=== PATIENT | female | born 1960 | race Caucasian/White ===

== ENCOUNTER 2024-10-03 13:40 | Inpatient (IN) | payer BC, OTHER ==
[~2024-10-03] VITALS: Ht 175.3 cm; Wt 70.1 kg
--- NOTE | 2024-10-03 14:01 | ED.PDOC ---
HPI (NEURO) HPI Comments HPI: Initial Vital Signs: Temp : 99F BP: 132/77 HR: 110 RR: 16 SpO2: 97% Past Medical History: Hypothyroidism, GERD Past Surgical History: Lt TMJ surgery, , Rt wrist ganglion cyst surgery Social History: Denies smoking, ETOH, or drug use. Medications: No medications. Allergies: NKDA HPI: Poor Historian. 63-year-old female presents to emergency department for six weeks history of intermittent episodes of left upper extremity numbness and tingling with left sided headache and occasional shortness of breath and palpitations. Patient has seen her PCP for this. She had a CT scan of her head without contrast that was unremarkable. Patient continues to have these symptoms. Patient comes to the ED for further evaluation. REVIEW OF SYSTEMS: CONSTITUTIONAL: Denies acute: fever, diaphoresis, chills, generalized weakness. HEAD: Denies acute: photophobia Eyes: Denies acute: Double vision, vision loss, eye pain, eye discharge. EARS: Denies acute: tinnitus, hearing loss, ear discharge, ear pain, THROAT: Denies acute: sore throat, swelling, difficulty swallowing , pain with swallowing, change in voice. NECK: Denies acute: neck pain, neck swelling, stiff neck. HEART: Denies acute : chest pain, LUNGS: Denies acute: wheezing, cough, hemoptysis ABDOMEN: Denies acute: abdominal pain, Nausea, Vomiting, diarrhea, melena , hematemesis, hematochezia SKIN: Denies acute: rash, redness, lesions, itchiness. EXTREMITIES: Denies acute: calf pain, weakness, Denies acute: Low back pain. Neuro: Denies acute: focal neurological deficit, motor or sensory focal neurological deficit, tremors, seizure like activity, confusion, dizziness, change in mental status, loss of bowel or bladder function, cauda equina like symptoms. : Denies acute: dysuria, hematuria, flank pain, increase in urinary frequency. PSYCH: Denies acute: hallucination, suicidal ideation, homicidal ideation. FEMALE: Denies acute: abnormal vaginal bleeding, foul odor, unusual discharge. PHYSICAL EXAM: General: no acute distress, awake and alert. Head: normocephalic, atraumatic. Neck: supple, trachea is midline, no swelling. Throat: Normal phonation. Eyes:, no erythema, no purulent discharge, no proptosis, no icterus. Heart: regular rate, regular rhythm, no significant murmur appreciated. Lungs: no apparent respiratory distress, Able to speak in full sentences. No wheezing, no rhonchi, no crackles. No stridors Clear to auscultation bilaterally. Abdomen: non tender to palpation, non distended, soft, no guarding, no rebound, + bowel sounds. Neuro: Awake, Alert, oriented to name, self, situation, follows commands GCS=15. Speech is normal. Skin: no petechia, no purpura, no cyanosis, non-pale, not jaundice. Lower extremities: --no - Pitting edema no deformity, no focal swelling, no calf TTP. Makes eye contact. moves all four extremities. Face: no apparent facial droop. Ambulating in the ED independently. Stroke: finger to nose cerebellar testing is intact. No pronator drift. Symmetrical clin nurse muscle strength b/l PERRLA, EOM-I CN 2-12 are grossly intact, No nystagmus. No nuchal rigidity, Kernig's sign, Brudzinski's sign, no meningeal signs. ED COURSE: Time Seen by MD: 14:00 Reviewed Notes: Nurses Notes, Allergies Information Source: Patient Mode of Arrival: Ambulatory Was a procedure done? Was a procedure done?: No Differential Diagnosis (SZ) Seizure: N/A Headache: Other (DDX include Sinusitis, migraine, meningitis, hypertension, intracranial mass/bleed, stroke, radiculopathy, vertebrobasillary insufficiency, cephalgia, pseudotumor cerebri, cerebellar ischemia/infarct, carotid stenosis, lacunar infarct, vertebral/carotid artery dissection, hydrocephalus, temporal arteritis, dura venous sinus thrombosis.) X-Ray, Labs, Meds, VS Vital Signs Date Time Temp Pulse Resp B/P (MAP) Pulse Ox O2 Delivery O2 Flow Rate FiO2 10/03/24 15:42 Room Air* 0 21 10/03/24 15:35 82 16 125/61 (82) 98 10/03/24 13:58 96 10/03/24 13:50 99.0 110 16 132/77 (95) 97 Lab Test 10/03/24 15:23 10/03/24 14:24 10/03/24 13:56 10/03/24 00:00 Range/Units Troponin I High Sensitivity < 3 L < 3 L </=34 ng/L White Blood Count 6.2 4.4-10.8 10^3/uL Red Blood Count 4.23 4.0-5.20 10^6/uL Hemoglobin 13.9 12.2-16.2 g/dL Hematocrit 40.8 36.0-46.0 % Mean Corpuscular Volume 96.3 80.0-100.0 fL Mean Corpuscular Hemoglobin 32.9 H 28.0-32.0 pg Mean Corpuscular Hemoglobin Concent 34.1 32.0-36.0 g/dL Red Cell Distribution Width 12.3 11.8-14.3 % Platelet Count 209 140-450 10^3/uL Mean Platelet Volume 8.3 6.9-10.8 fL Neutrophils (%) (Auto) 74.2 37.0-80.0 % Lymphocytes (%) (Auto) 18.4 10.0-50.0 % Monocytes (%) (Auto) 6.2 0.0-12.0 % Eosinophils (%) (Auto) 0.7 0.0-7.0 % Basophils (%) (Auto) 0.5 0.0-2.0 % Neutrophils # (Auto) 4.6 1.6-8.6 10 ^3/uL Lymphocytes # (Auto) 1.1 0.4-5.4 10 ^3/uL Monocytes # (Auto) 0.4 0-1.3 10 ^3/uL Eosinophils # (Auto) 0 0-0.8 10 ^3/uL Basophils # (Auto) 0 0-0.2 10 ^3/uL Nucleated Red Blood Cells 0.0 % Sodium Level 143 136-145 mmol/L Potassium Level 3.6 3.5-5.1 mmol/L Chloride Level 107 98-107 mmol/L Carbon Dioxide Level 28 20-31 mmol/L Anion Gap 8 5-15 Blood Urea Nitrogen 19 9-23 mg/dL Creatinine 0.68 0.550-1.02 mg/dL Glomerular Filtration Rate Calc 98 >90 mL/min BUN/Creatinine Ratio 27.9 H 10.0-20.0 Serum Glucose 103 74-106 mg/dL Calcium Level 9.9 8.7-10.4 mg/dL Magnesium Level 1.7 1.6-2.6 mg/dL Total Bilirubin 0.6 0.2-1.0 mg/dL Aspartate Amino Transferase (AST) 19 13-40 U/L Alanine Aminotransferase (ALT) 24 7-40 U/L Alkaline Phosphatase 76 46-116 U/L B-Type Natriuretic Peptide 39.02 0-100 pg/mL Total Protein 6.4 5.7-8.2 g/dL Albumin 4.6 3.2-4.8 g/dL Thyroid Stimulating Hormone (TSH) 1.34 0.55-4.78 uIU/mL POC Glucose 105 70-106 mg/dl Urine Color Light-yellow Yellow Urine Clarity Clear Clear Urine pH 7.0 5.0-9.0 Urine Specific [place] > 1.035 H 1.001-1.035 Urine Protein Trace H Negative Urine Ketones Negative Negative Urine Blood Negative Negative /uL Urine Nitrite Negative Negative Urine Bilirubin Negative Negative Urine Urobilinogen Normal Negative mg/dL Urine Leukocyte Esterase Negative Negative /uL Urine RBC 1 0 - 4 /hpf Urine Microscopic WBC < 1 0-5 /HPF Urine Squamous Epithelial Cells Few <5 /hpf Urine Bacteria None seen None Seen /hpf Urine Glucose Normal Normal mg/dL Current Medications Medications (Trade) Dose Ordered Sig/Daljit Route Start Time Stop Time Status Last Admin Acetaminophen/ Hydrocodone Bitart ([place] 5/325MG Tab) 1 tab ONCE ONCE PO 10/03/24 18:15 10/03/24 18:16 DC 10/03/24 18:34 [place] [id number] Ph: [phone] DIAGNOSTIC IMAGING Diagnostic Imaging Report : [id number] Signed PATIENT: DORINDA POPE ACCT: [id number] UNIT: [id number] : 1960 LOC: ER ROOM / BED: / AGE / SEX: 63 / F ADM STATUS: REG ER SERVICE [id number] ORDERING PHYSICIAN: SOURAV CHANDRA DO PROCEDURE(s): [place] - ANGIO HEAD/Neck REASON: LINDSEY ORDER NUMBER(s): [id number], ACCESSION NUMBER(s): [id number] Exam: CT ANGIO HEAD/NECK INDICATION: LINDSEY EXAM DATE: 10/03/2024 04:07 PM COMPARISON: None TECHNIQUE: CT head without contrast. CTA head, neckwith intravenous contrast. 3D image postprocessing was performed on a dedicated workstation and images were used for interpretation and reporting. RADIATION DOSE: Tracker: CTDIvol: 29.58 mGy, DLP: 1293.61 mGy*cm Angio: CTDIvol: 29.58 mGy, DLP: 1293.61 mGy*cm FINDINGS: No intracranial hemorrhage. No extra-axial fluid, mass, mass effect or midline shift. Ventricles are midline and normal in size. Garcia-white differentiation maintained. Mastoids well pneumatized. Paranasal sinuses well pneumatized. The right common carotid artery demonstrates no high-grade stenosis. Right internal carotid artery demonstrates no high-grade stenosis. Right middle cerebral artery demonstrates no high-grade stenosis. The left common carotid ar florina demonstrates no high-grade stenosis. The left internal carotid artery demonstrates no high-grade stenosis. Left middle cerebral artery demonstrates no high-grade stenosis. The bilateral anterior cerebral arteries demonstrate no high-grade stenoses. Right vertebral artery demonstrates no high-grade stenosis. Basilar artery demonstrates no high-grade stenosis. Bilateral posterior cerebral arteries demonstrate no high-grade stenoses. Left vertebral artery demonstrates no high-grade stenosis. 8 mm left upper lobe pulmonary nodule. IMPRESSION: 1. No evidence of hemodynamically significant cervical stenosis . 2. No intracranial hemorrhage. 3. 8 mm left upper lobe pulmonary nodule. Recommend follow-up per Fleischner society criteria.. ATED BY: CARLOS ALBERTO BOSTON MD DICTATED DATE/TIME: 10/03/24 1639 SIGNED BY: CARLOS ALBERTO BOSTON MD SIGNED DATE/TIME: 10/03/24 1639 CC: Time of 1ST Reevaluation: 15:00 Reevaluation 1ST: Unchanged Time of 2ND Reevaluation: 18:05 (Patient refuses to go home. She can then go home in this condition. Her symptoms has been persistent for approximately six weeks. She may benefit from a neurology evaluation while in the hospital.) Reevaluation 2ND: Unchanged Patient Education/Counseling: Diagnosis, Treatment Family Education/Counseling: No Family Present Comments Patient presented with the above HPI.----headache--workup was initiated. patient was found with the above mentioned diagnosis. the following medications were ordered: please refer to order lists of meds and tests obtained by myself Dr. Chandra. Patient ED course and VS have been stabilized. Patient has been reassessed in the ED and remained in a stable condition. Pertinent incidental findings were discussed with the patient and/or family. Patient/family voices understanding and is agreeable with plan. Patient has been observed in the ED adequate length of time to insure improvement/stability. Escalation of care considered: Consideration of escalation to observation or admission Patient was ADMITTED to the medicine team for further evaluation and treatment of their presentation. All the reports of any imaging studies that were ordered by myself were reviewed by myself. Departure 1 Departure Time of Disposition: 18:05 Impression: Primary Impression: Headache Additional Impression: Pulmonary nodule Disposition: ADMITTED INPATIENT Admit to: [facility] Condition: Guarded Discharged With: Self Critical Care Note Critical Care Time?: No Heart Score Heart Score: Heart Score Response (Comments) Value History N/A 0 EKG N/A 0 Age N/A 0 Risk Factors N/A 0 Troponin N/A 0 Total 0 I personally scribed for SOURAV CHANDRA DO ([email or web address]) on 10/03/24 at 14:01. Electronically submitted by Elvis Rojas ([email or web address]). I personally scribed for SOURAV CHANDRA DO ([email or web address]) on 10/03/24 at 16:47. Electronically submitted by Elvis Rojas ([email or web address]). I personally scribed for SORUAV CHANDRA DO ([email or web address]) on 10/03/24 at 16:47. Electronically submitted by Elvis Rojas ([email or web address]). SOURAV CHANDRA DO Oct 03, 2024 14:01
--- NOTE | 2024-10-03 15:02 | DVH ---
CHEST RADIOGRAPH Indication: LINDSEY, sob Technique: Single frontal view of the chest was obtained Comparison: None FINDINGS: Lines and Tubes: None Lungs: No focal consolidation. Pleura: No effusion. No pneumothorax. Cardiomediastinal contours: Unremarkable Bones: No acute osseous abnormality. IMPRESSION: 1. No acute cardiopulmonary disease.
[2024-10-03 15:10] LABS: Basophils # (auto) 0 10 ^3/uL (0-0.2); Basophils % (auto) 0.5 % (0.0-2.0); Eosinophils # (auto) 0 10 ^3/uL (0-0.8); Eosinophils % (auto) 0.7 % (0.0-7.0); Hematocrit 40.8 % (36.0-46.0); Hemoglobin 13.9 g/dL (12.2-16.2); Lymphocytes # (auto) 1.1 10 ^3/uL (0.4-5.4); Lymphocytes % (auto) 18.4 % (10.0-50.0); Mean Corpuscular Hemoglobin 32.9 pg (28.0-32.0); Mean Corpuscular Hgb Conc. 34.1 g/dL (32.0-36.0); Mean Corpuscular Volume 96.3 fL (80.0-100.0); Monocytes # (auto) 0.4 10 ^3/uL (0-1.3); Monocytes % (auto) 6.2 % (0.0-12.0); Neutrophils # (auto) 4.6 10 ^3/uL (1.6-8.6); Neutrophils % (auto) 74.2 % (37.0-80.0); Platelet Count (auto) 209 10^3/uL (140-450); Red Blood Cells 4.23 10^6/uL (4.0-5.20); Red Cell Distribution Width 12.3 % (11.8-14.3); White Blood Cell 6.2 10^3/uL (4.4-10.8)
[2024-10-03 15:30] LABS: Alanine Aminotransferase 24 U/L (7-40); Albumin 4.6 g/dL (3.2-4.8); Alkaline Phosphatase 76 U/L (46-116); Anion Gap 8 (5-15); Aspartate Aminotransferase 19 U/L (13-40); BUN/Creatinine Ratio 27.9 (10.0-20.0); Blood Urea Nitrogen 19 mg/dL (9-23); Calcium 9.9 mg/dL (8.7-10.4); Carbon Dioxide 28 mmol/L (20-31); Chloride 107 mmol/L (98-107); Glucose 103 mg/dL (74-106); Magnesium 1.7 mg/dL (1.6-2.6); Potassium 3.6 mmol/L (3.5-5.1); Sodium 143 mmol/L (136-145)
[2024-10-03 15:31] LABS: Bilirubin, Total 0.6 mg/dL (0.2-1.0); Total Protein 6.4 g/dL (5.7-8.2)
[2024-10-03] MEDS: IOHEXOL 350 MG/ML 100ML IJ ONE (16:14)
--- NOTE | 2024-10-03 16:42 | DVH ---
Exam: CT ANGIO HEAD/NECK INDICATION: LINDSEY EXAM DATE: 10/03/2024 04:07 PM COMPARISON: None TECHNIQUE: CT head without contrast. CTA head, neckwith intravenous contrast. 3D image postprocessin g was performed on a dedicated workstation and images were used for interpretation and reporting. RADIATION DOSE: Tracker: CTDIvol: 29.58 mGy, DLP: 1293.61 mGy*cm Angio: CTDIvol: 29.58 mGy, DLP: 1293.61 mGy*cm FINDINGS: No intracranial hemorrhage. No extra-axial fluid, mass, mass effect or midline shift. Ventricles are midline and normal in size. Garcia-white differentiation maintained. Mastoids well pneumatized. Paran sarah sinuses well pneumatized. The right common carotid artery demonstrates no high-grade stenosis. Right internal carotid artery de monstrates no high-grade stenosis. Right middle cerebral artery demonstrates no high-grade stenosis. The left common carotid artery demonstrates no high-grade stenosis. The left internal carotid artery demonstrates no high-grade stenosis. Left middle cerebral artery demonstrates no high-grade stenosis . The bilateral anterior cerebral arteries demonstrate no high-grade stenoses. Right vertebral artery demonstrates no high-grade stenosis. Basilar artery demonstrates no high-grade stenosis. Bilateral posterior cerebral arteries demonstrate no high-grade stenoses. Left vertebral artery demonstrates no high-grade stenosis. 8 mm left upper lobe pulmonary nodule. IMPRESSION: 1. No evidence of hemodynamically significant cervical stenosis . 2. No intracranial hemorrhage. 3. 8 mm left upper lobe pulmonary nodule. Recommend follow-up per Fleischner society criteria..
[2024-10-03 17:30] LABS: Urine Bacteria None Seen /hpf (None Seen)
[2024-10-03 18:04] LABS: Urine Blood Negative /uL (Negative); Urine Clarity Clear (Clear); Urine Color Light-Yellow (Yellow); Urine Protein, UAD TRACE (Negative); Urine Squamous Epithelial Cell FEW /hpf (<5); Urine Urobilinogen Normal (Negative)
[2024-10-03 18:06] LABS: Urine Specific Gravity > 1.035 (1.001-1.035)
[2024-10-03 18:14] LABS: Urine WBC < 1 /HPF (0-5)
[2024-10-03] MEDS: HYDROcodone-ACET 5/325MG TAB PO ONE (18:34)
[2024-10-03] MEDS ORDERED: NITR100C6 PO (19:15)
[2024-10-03] MEDS ORDERED: ESTR0.1C5 (19:15)
[2024-10-03] MEDS ORDERED: OMEP1CAP70 (19:15)
[2024-10-03] MEDS ORDERED: AMOX500C2 (19:15)
[2024-10-03] MEDS ORDERED: IBUP-1455 (19:15)
[2024-10-03] MEDS ORDERED: PHEN-1044 (19:15)
--- NOTE | 2024-10-03 19:28 | DVHHP2 ---
History of Present Illness Reason for Visit: Generalized weakness History of Present Illness 63-year-old female presents to ED with six week history of intermittent episodes of left-sided frontal temporal occipital headache associated with left upper extremity numbness and tingling along with generalized weakness. She reports informing her PCP about this in which a neuro consult has been initiated. She states that she had a CT scan of her head without contrast and that it was normal. The patient is concerned about her symptoms and states I can not live with these symptoms would like to be further evaluated and treated. She denied any recent injury or trauma to her head and to her body. Upon evaluation, there is no deficit noted. The patient informed me that she has not seen a neurologist. The patient will be admitted under hospitalist care to the medical-surgical unit. The patient denies fever, blurred vision, dizziness, chest pain, shortness of breath, nausea, vomiting, abdominal pain, diarrhea, constipation other associated symptoms. The plan has been discussed with the patient in which all questions concerns have been addressed. GI: GERD Endocrine: Hypothyroidism Past Surgical History: Past Surgical History TMJ surgery Right wrist ganglion cyst surgery Family History: None Smoke: No ALCOHOL: none Drugs: None Lives: with Family Domestic Violence: Neg Review of Systems Constitutional: Yes: Weakness Neurological: Numbness (To left arm), Other (Headache) Allergies: Coded Allergies: NO KNOWN ALLERGIES (Unverified , 10/03/24) Medications Current Medications Medications Dose Ordered Sig/Daljit Route Start Time Stop Time Status Last Admin Dose Admin Ketorolac Tromethamine 15 mg Q6HPRN PRN IV 10/03/24 19:15 10/08/24 19:14 UNV Sodium Chloride 1,000 ml @ 75 mls/hr [id number] IV 10/03/24 19:15 UNV Acetaminophen 650 mg Q6HP PRN PO 10/03/24 19:15 UNV Exam Vital Signs Vital Signs Date Time Temp Pulse Resp B/P (MAP) Pulse Ox O2 Delivery O2 Flow Rate FiO2 10/03/24 15:42 Room Air* 0 21 10/03/24 15:35 82 16 125/61 (82) 98 10/03/24 13:50 99.0 General Appearance: Alert, Oriented X3, Cooperative, No acute distress HEENT: Atraumatic, PERRLA, Mucous membr. moist/pink Respiratory: Clear to auscultation, Normal air movement Cardiovascular: Normal S1, Normal S2, No murmurs Abdominal: Normal bowel sounds, Soft, No tenderness, No hepatospenomegaly, No masses Extremities: No clubbing, No cyanosis, No edema, Normal pulses, No tenderness/swelling Skin: No rashes, No breakdown Neuro: Normal gait, Normal speech, Strength at 5/5 X4 ext, Normal tone, Sensat ion intact, Cranial nerves 3-12 NL, Reflexes 2+ Psych/Mental Status: Mental status NL, Mood NL Labs/Xrays Labs Test 10/03/24 15:23 10/03/24 14:24 10/03/24 13:56 10/03/24 00:00 Range/Units Troponin I High Sensitivity < 3 L </=34 ng/L White Blood Count 6.2 4.4-10.8 10^3/uL Red Blood Count 4.23 4.0-5.20 10^6/uL Hemoglobin 13.9 12.2-16.2 g/dL Hematocrit 40.8 36.0-46.0 % Mean Corpuscular Volume 96.3 80.0-100.0 fL Mean Corpuscular Hemoglobin 32.9 H 28.0-32.0 pg Mean Corpuscular Hemoglobin Concent 34.1 32.0-36.0 g/dL Red Cell Distribution Width 12.3 11.8-14.3 % Platelet Count 209 140-450 10^3/uL Mean Platelet Volume 8.3 6.9-10.8 fL Neutrophils (%) (Auto) 74.2 37.0-80.0 % Lymphocytes (%) (Auto) 18.4 10.0-50.0 % Monocytes (%) (Auto) 6.2 0.0-12.0 % Eosinophils (%) (Auto) 0.7 0.0-7.0 % Basophils (%) (Auto) 0.5 0.0-2.0 % Neutrophils # (Auto) 4.6 1.6-8.6 10 ^3/uL Lymphocytes # (Auto) 1.1 0.4-5.4 10 ^3/uL Monocytes # (Auto) 0.4 0-1.3 10 ^3/uL Eosinophils # (Auto) 0 0-0.8 10 ^3/uL Basophils # (Auto) 0 0-0.2 10 ^3/uL Nucleated Red Blood Cells 0.0 % Sodium Level 143 136-145 mmol/L Potassium Level 3.6 3.5-5.1 mmol/L Chloride Level 107 98-107 mmol/L Carbon Dioxide Level 28 20-31 mmol/L Anion Gap 8 5-15 Blood Urea Nitrogen 19 9-23 mg/dL Creatinine 0.68 0.550-1.02 mg/dL Glomerular Filtration Rate Calc 98 >90 mL/min BUN/Creatinine Ratio 27.9 H 10.0-20.0 Serum Glucose 103 74-106 mg/dL Calcium Level 9.9 8.7-10.4 mg/dL Magnesium Level 1.7 1.6-2.6 mg/dL Total Bilirubin 0.6 0.2-1.0 mg/dL Aspartate Amino Transferase (AST) 19 13-40 U/L Alanine Aminotransferase (ALT) 24 7-40 U/L Alkaline Phosphatase 76 46-116 U/L B-Type Natriuretic Peptide 39.02 0-100 pg/mL Total Protein 6.4 5.7-8.2 g/dL Albumin 4.6 3.2-4.8 g/dL Thyroid Stimulating Hormone (TSH) 1.34 0.55-4.78 uIU/mL POC Glucose 105 70-106 mg/dl Urine Color Light-yellow Yellow Urine Clarity Clear Clear Urine pH 7.0 5.0-9.0 Urine Specific [place] > 1.035 H 1.001-1.035 Urine Protein Trace H Negative Urine Ketones Negative Negative Urine Blood Negative Negative /uL Urine Nitrite Negative Negative Urine Bilirubin Negative Negative Urine Urobilinogen Normal Negative mg/dL Urine Leukocyte Esterase Negative Negative /uL Urine RBC 1 0 - 4 /hpf Urine Microscopic WBC < 1 0-5 /HPF Urine Squamous Epithelial Cells Few <5 /hpf Urine Bacteria None seen None Seen /hpf Urine Glucose Normal Normal mg/dL ORDERING PHYSICIAN: SOURAV CHANDRA DO PROCEDURE(s): [place] - ANGIO HEAD/Neck REASON: ORDER NUMBER(s): [id number], ACCESSION NUMBER(s): [id number] Exam: CT ANGIO HEAD/NECK INDICATION: LINDSEY EXAM DATE: 10/03/2024 04:07 PM COMPARISON: None TECHNIQUE: CT head without contrast. CTA head, neckwith intravenous contrast. 3D image postprocessing was performed on a dedicated workstation and images were used for interpretation and reporting. RADIATION DOSE: Tracker: CTDIvol: 29.58 mGy, DLP: 1293.61 mGy*cm Angio: CTDIvol: 29.58 mGy, DLP: 1293.61 mGy*cm FINDINGS: No intracranial hemorrhage. No extra-axial fluid, mass, mass effect or midline shift. Ventricles are midline and normal in size. Garcia-white differentiation maintained. Mastoids well pneumatized. Paranasal sinuses well pneumatized. The right common carotid artery demonstrates no high-grade stenosis. Right i nternal carotid artery demonstrates no high-grade stenosis. Right middle cerebral artery demonstrates no high-grade stenosis. The left common carotid artery demonstrates no high-grade stenosis. The left internal carotid artery demonstrates no high-grade stenosis. Left middle cerebral artery demonstrates no high-grade stenosis. The bilateral anterior cerebral arteries demonstrate no high-grade stenoses. Right vertebral artery demonstrates no high-grade stenosis. Basilar artery demonstrates no high-grade stenosis. Bilateral posterior cerebral arteries demonstrate no high-grade stenoses. Left vertebral artery demonstrates no high-grade stenosis. 8 mm left upper lobe pulmonary nodule. IMPRESSION: 1. No evidence of hemodynamically significant cervical stenosis . 2. No intracranial hemorrhage. 3. 8 mm left upper lobe pulmonary nodule. Recommend follow-up per Fleischner society criteria.. ATED BY: CARLOS ALBERTO BOSTON MD DICTATED DATE/TIME: 10/03/241638 SIGNED BY: CARLOS ALBERTO BOSTON MD SIGNED DATE/TIME: 10/03/241638 CC: ORDERING PHYSICIAN: SOURAV CHANDRA DO PROCEDURE(s): CXRP - CHEST PORTABLE REASON: LINDSEY, sob ORDER NUMBER(s): [id number], ACCESSION NUMBER(s): [id number] CHEST RADIOGRAPH Indication: LINDSEY, sob Technique: Single frontal view of the chest was obtained Comparison: None FINDINGS: Lines and Tubes: None Lungs: No focal consolidation. Pleura: No effusion. No pneumothorax. Cardiomediastinal contours: Unremarkable Bones: No acute osseous abnormality. IMPRESSION: 1. No acute cardiopulmonary disease. ATED BY: BENNY REYES Jr., DO DICTATED DATE/TIME: 10/03/241458 SIGNED BY: BENNY REYES Jr., SIGNED DATE/TIME: 10/03/241458 CC: Assessment/Plan Assessment/Plan Generalized weakness--patient with chief complaint of left side headache associated with left upper extremity numbness and tingling and weakness intermittently past six weeks Patient went to PCP and informed of this in which Neuro consult pending authorization She has CT scan of her head without contrast that was unremarkable No recent injury or trauma to her head or body Admit to medical-surgical unit Reviewed CBC which is normal Reviewed BNP which is normal Reviewed BMP which is normal Cardiac enzyme negative x2 Urinalysis is negative Reviewed CT head/neck--8 mm left upper lobe nodule noted Reviewed chest x-ray which is normal Orthostatic BP Q shift Neuro check Q shift IV Toradol now and p.r.n. Consult neurologist for evaluation and recommendation 8 mm left upper lobe nodule No history of cancer No history of smoking We will consider to consult paper products machine operator for evaluation Hypothyroidism TSH 1.34 GERD Protonix p.o. Reconcile home medication DVT prophylaxis PUD prophylaxis Labs in a.m. Discussed plan of care with the patient in which all questions concerns have been addressed Plan discussed with: Patient My Orders Orders - LADY CORDERO MANAGER UTILIZATION Procedure Category Date Status Time Orthostatic Vital ORDERS 10/03/24 Transmitted Signs 19:12 Orthostatic Vital ORDERS 10/04/24 Transmitted Signs 19:12 Ketorolac Injection PHA 10/03/24 Logged (Toradol Injection) 19:15 Ketorolac Injection PHA 10/03/24 Logged (Toradol Injection) 19:15 * Neurology Consult CONS 10/03/24 Transmitted 19:12 Admit ADMIT 10/03/24 Transmitted 19:12 2 Gm Sodium Diet DIET 10/04/24 Transmitted Breakfast Sodium Chloride 0.9% PHA 10/03/24 Logged 19:15 Complete Blood Count LAB 10/04/24 Verified 04:00 Comprehensive LAB 10/04/24 Verified Metabolic Panel 04:00 Condition: Fair CYRIL 10/03/24 In Process 19:12 Acetaminophen Tablet PHA 10/03/24 Logged (Tylenol Tablet) 19:15 BRP CYRIL 10/03/24 In Process 19:12 Date of Service: Oct 03, 2024 Billing Provider: LADY CORDERO Common Visit Codes: [id number] INP/OBS CARE (HIGH) LADY CORDERO Oct 03, 2024 19:28
[2024-10-03] MEDS: KETOROLAC TROMETH 30 MG/ML 1ML VIAL IV ONE (21:00)
[2024-10-03 22:12] VITALS: BP 140/47; PULSE 69; PULSE 75; RESP 17; RESP 18; TEMP 98.2; O2SAT 97; O2SAT 98
[2024-10-03] MEDS ORDERED: LEVO-848 PO (22:46)
[2024-10-03] MEDS: SODIUM CHLORIDE 0.9% 1,000 ML IV SCH (23:06)
[2024-10-03] MEDS: KETOROLAC TROMETH 30 MG/ML 1ML VIAL IV PRN (23:21)
[2024-10-04] VITALS (8 sets, daily range): BP systolic 103–120; BP diastolic 49–62; PULSE 55–86; RESP 17–18; TEMP 97.4–99; O2SAT 93–97
[2024-10-04 07:20] LABS: Basophils # (auto) 0 10 ^3/uL (0-0.2); Basophils % (auto) 0.4 % (0.0-2.0); Eosinophils # (auto) 0.1 10 ^3/uL (0-0.8); Eosinophils % (auto) 1.3 % (0.0-7.0); Hematocrit 37.4 % (36.0-46.0); Hemoglobin 12.8 g/dL (12.2-16.2); Lymphocytes # (auto) 1.3 10 ^3/uL (0.4-5.4); Lymphocytes % (auto) 22.5 % (10.0-50.0); Mean Corpuscular Hemoglobin 33.2 pg (28.0-32.0); Mean Corpuscular Hgb Conc. 34.2 g/dL (32.0-36.0); Mean Corpuscular Volume 97.1 fL (80.0-100.0); Monocytes # (auto) 0.5 10 ^3/uL (0-1.3); Monocytes % (auto) 8.1 % (0.0-12.0); Neutrophils % (auto) 67.7 % (37.0-80.0); Platelet Count (auto) 180 10^3/uL (140-450); Red Blood Cells 3.85 10^6/uL (4.0-5.20); Red Cell Distribution Width 12.3 % (11.8-14.3)
[2024-10-04 07:35] LABS: Alanine Aminotransferase 20 U/L (7-40); Alkaline Phosphatase 60 U/L (46-116); Anion Gap 8 (5-15); Aspartate Aminotransferase 15 U/L (13-40); BUN/Creatinine Ratio 29.3 (10.0-20.0); Blood Urea Nitrogen 17 mg/dL (9-23); Calcium 9.4 mg/dL (8.7-10.4); Carbon Dioxide 29 mmol/L (20-31); Glucose 94 mg/dL (74-106)
[2024-10-04 07:36] LABS: Bilirubin, Total 0.6 mg/dL (0.2-1.0)
[2024-10-04 07:57] LABS: Chloride 109 mmol/L (98-107); Potassium 3.3 mmol/L (3.5-5.1); Sodium 146 mmol/L (136-145); Total Protein 5.6 g/dL (5.7-8.2)
[2024-10-04] MEDS: ACETAMINOPHEN 325 MG TAB PO PRN (11:23)
--- NOTE | 2024-10-04 11:49 | DVHPN2 ---
Reviewed: Care Plan, H&P, Labs, Medications, Previous Orders, Radiology Changes from previous H/P or p: No Changes Objective Vitals Vital Signs Date Time Temp Pulse Resp B/P (MAP) Pulse Ox O2 Delivery O2 Flow Rate FiO2 10/04/24 08:47 97.4 75 18 114/56 (75) 97 97.4 10/04/24 08:00 Room Air* 0 21 Intake/Output Intake and Output 10/04/24 07:00 Intake Total 240 ml Balance 240 ml Intake Oral 240 ml # Voids 1 Medications Current Medications Medications Dose Ordered Sig/Daljit Route Start Time Stop Time Status Last Admin Dose Admin Ketorolac Tromethamine 15 mg Q6HPRN PRN IV 10/03/24 19:15 10/08/24 19:14 10/04/24 06:31 15 MG Sodium Chloride 1,000 ml @ 75 mls/hr [id number] IV 10/03/24 19:15 10/04/24 11:23 75 MLS/HR Acetaminophen 650 mg Q6HP PRN PO 10/03/24 19:15 10/04/24 11:23 650 MG Laboratory Results Laboratory Tests 10/04/24 06:18 Chemistry Test 10/03/24 14:24 10/04/24 06:18 Albumin 4.6 g/dL (3.2-4.8) 4.0 g/dL (3.2-4.8) Calcium Level 9.9 mg/dL (8.7-10.4) 9.4 mg/dL (8.7-10.4) Magnesium Level 1.7 mg/dL (1.6-2.6) Total Protein 6.4 g/dL (5.7-8.2) 5.6 g/dL (5.7-8.2) L Cardiac Markers Test 10/03/24 14:24 B-Type Natriuretic Peptide 39.02 pg/mL (0-100) LFT Test 10/03/24 14:24 10/04/24 06:18 Alanine Aminotransferase (ALT) 24 U/L (7-40) 20 U/L (7-40) Alkaline Phosphatase 76 U/L (46-116) 60 U/L (46-116) Aspartate Amino Transferase (AST) 19 U/L (13-40) 15 U/L (13-40) Total Bilirubin 0.6 mg/dL (0.2-1.0) 0.6 mg/dL (0.2-1.0) HgA1c, TSH Test 10/03/24 14:24 Thyroid Stimulating Hormone (TSH) 1.34 uIU/mL (0.55-4.78) Urinalysis Test 10/03/24 00:00 Urine Color Light-yellow (Yellow) Urine Clarity Clear (Clear) Urine pH 7.0 (5.0-9.0) Urine Specific [place] > 1.035 (1.001-1.035) Urine Protein Trace (Negative) H Urine Ketones Negative (Negative) Urine Blood Negative /uL (Negative) Urine Nitrite Negative (Negative) Urine Bilirubin Negative (Negative) Urine Urobilinogen Normal mg/dL (Negative) Urine Leukocyte Esterase Negative /uL (Negative) Urine RBC 1 /hpf (0 - 4) Urine Microscopic WBC < 1 /HPF (0-5) Urine Squamous Epithelial Cells Few /hpf (<5) Urine Bacteria None seen /hpf (None Seen) Urine Glucose Normal mg/dL (Normal) Labs and/or images reviewed: Labs reviewed by me, Image(s) reviewed by me Assessment/Plan Assessment/Plan Subacute left-sided headache with left-sided weakness rule out TIA CVA: CT head negative consult for Neurology Dr. Tidwell, Toradol for the pain 8 mm left upper lobe nodule: Consult for Dr. Kim Hypothyroidism GERD ESR rule out temporal arteritis pending All labs are normal CT C-spine ordered Plan discussed with: Patient Date of Service: Oct 04, 2024 Billing Provider: ROBERT DAWSON MD Common Visit Codes: [id number] INP/OBS CARE(HIGH) ROBERT DAWSON MD Oct 04, 2024 11:49
[2024-10-04 12:52] LABS: Erythrocyte Sedimentation Rate 5 mm/hr (0-20)
[2024-10-04] MEDS: HYDROmorphone HCL 2 MG/ML VL/or syr IV PRN (13:46)
--- NOTE | 2024-10-04 17:01 | DVH ---
EXAM: CT CERVICAL WITHOUT CONTRAST INDICATION: Left-sided Neck pain with left-sided weakness EXAM DATE: 10/04/2024 04:05 PM COMPARISON: None TECHNIQUE: Multiple axial CT images of the cervical spine were obtained using bone algorithm. Axial a nd coronal reformatting was done. Bone and soft tissue windows were reviewed. Radiation Dose Information: CT Dose: CTDI volume is 15.26 mGy. Dose-length product is 431.72 mGy*cm FINDINGS: The cervical alignment is intact. No acute cervical spine fracture is identified. The vertebral body heights are intact. No suspicious osseous lesions are identified. No significant degenerative changes are identified. There is no prevertebral soft tissue swelling. IMPRESSION: 1. No evidence of acute cervical spine fracture or traumatic malalignment. 2. No findings of central spinal stenosis or neural foraminal stenosis. All CT scans at this medical facility are performed using dose modulation techniques as appropriate t o a performed exam including the following: Automated exposure control was utilized; adjustment of th e MA and/or KV according to patient size; and use of iterative reconstruction technique.
--- NOTE | 2024-10-04 21:15 | ECG ---
[facility] Test Date: 2024-10-03 Test Time: 13:58:22 Pat Name: DORINDA POPE Department: ER Room: 0274 Gender: F Medical Language Specialist: SEYMOUR : 1960 Requested By: SOURAV CHANDRA Order Number: [id number] Reading MD: Measurements Intervals [place] Rate: 96 P: 63 ID: [id number] QRS: -28 QRSD: 84 T: 35 QT: 339 QTc: 429 Interpretive Statements Sinus rhythm Borderline left axis deviation Low voltage, precordial leads Please click the below link to view image of tracing.
[2024-10-04] MEDS: ONDANSETRON HCL 4 MG/2 ML VIAL IV PRN (22:30)
[2024-10-04] MEDS: MORPHINE SULFATE INJ 2 MG/ml SYRG IV PRN (22:39)
--- NOTE | 2024-10-04 23:07 | DVHINCON2 ---
Date of service: Oct 04, 2024 Referring Physician Jacqueline Jimenez NP Reason for Consultation 8 MM KAREEM nodule History of Present Illness A 63-year-old woman with PMHx of GERD and hypothyroidism who presented to ED on 10/03/24 with 6-week history of intermittent episodes of left-sided frontal temp oral occipital headache associated with left upper extremity numbness and tingling along with generalized weakness. Reports PCP has initiated a neuro consult for these sx. Past CT scan of head without contrast was normal. The patient is concerned about her symptoms and states I cannot live with these symptoms would like to be further evaluated and treated. She denied any recent injury or trauma to her head and to her body. No deficits noted on evaluation. Patient has not seen a neurologist. Denied fever, blurred vision, dizziness, chest pain, shortness of breath, N/V/D or other complaints. Patient was admitted for further care, and pulmonary consultation is requested for evaluation and management d/t pulmonary nodule found on imaging. Review of Systems: 14-point review of systems negative unless otherwise noted above. Past Medical History: GERD, hypothyroidism, TMJ. Past Surgical History: , TMJ, right wrist ganglion cyst. Medications: Reviewed. Allergies: No known drug allergies. Family History: Cardiovascular disease. Social History: Nonsmoker. No alcohol or illicit drug use. Family History: Cardiovascular disease G8 MOTHER, Allergies: Coded Allergies: NO KNOWN ALLERGIES (Unverified , 10/03/24) Home Meds Reported Medications Levothyroxine Sodium (SYNTHROID TABLET) 50 Mcg Tb, 1 TAB PO DAILY, #30 TAB 5 Refills 10/03/24 Estradiol Vaginal (Estradiol) 0.1 Mg/Gm Cre 10/03/24 Omeprazole (Omeprazole Dr) 20 Mg Cap, 1 DAILY 10/03/24 Ibuprofen Micronized (Ibuprofen) 800 Mg Tab, 1 10/03/24 Amoxicillin Trihydrate (Amoxicillin) 500 Mg Cap, 1 10/03/24 Current Medications Current Medications Medications (Trade) Dose Ordered Sig/Daljit Route PRN Reason Start Time Stop Time Status Last Admin Hydromorphone HCl (Dilaudid Injection) 2 mg Q6HPRN PRN IV SEVERE PAIN (7-10 PAIN SCALE) 10/04/24 12:00 10/04/24 22:09 DC 10/04/24 13:46 Pantoprazole Sodium (Protonix Tablet) 40 mg DAILY PO 10/05/24 10:00 Levothyroxine Sodium (Synthroid Tablet) 50 mcg QAM@0600 PO 10/05/24 06:00 Morphine Sulfate 2 mg Q6HPRN PRN IV SEVERE PAIN (7-10 PAIN SCALE) 10/04/24 22:15 10/04/24 22:39 Ondansetron HCl (Zofran) 4 mg Q6HPRN PRN IV NAUSEA / VOMITING 10/04/24 22:15 10/04/24 22:30 Vital Signs Vital Signs Date Time Temp Pulse Resp B/P (MAP) Pulse Ox O2 Delivery O2 Flow Rate FiO2 10/04/24 22:39 59 18 108/59 10/04/24 21:00 99.0 93 99.0 10/04/24 08:00 Room Air* 0 21 Physical Exam Gen.: Patient lying in bed in no apparent distress. Breathing on room air. Head: Normocephalic, atraumatic. Eyes: EOMI/PERRLA. Ears: Normal hearing. Normal anatomy. Neck/trachea: Trachea midline, supple. Nose: Normal external anatomy. Mouth: Moist mucous membranes. Chest: Decreased air entry bilaterally. No wheezing or rhonchi. Cardiovascular: Positive S1, positive S2. Regular rate and rhythm. Abdomen: Positive bowel sounds in all 4 quadrants. Soft, non-tender, non- distended. : Deferred. Rectal: Deferred. Skin: Warm, dry. Intact. Extremities: 2+ radial pulses bilaterally. No lower extremity edema. Neuro: Awake, alert, oriented x3. No gross motor or sensory deficits. Cranial nerves II through XII intact. Gait not assessed. Labs/Diagnostic Data Labs Test 10/04/24 11:38 10/04/24 06:18 10/03/24 15:23 10/03/24 14:24 Range/Units Erythrocyte Sedimentation Rate 5 0-20 mm/hr White Blood Count 6.0 4.4-10.8 10^3/uL Red Blood Count 3.85 L 4.0-5.20 10^6/uL Hemoglobin 12.8 12.2-16.2 g/dL Hematocrit 37.4 36.0-46.0 % Mean Corpuscular Volume 97.1 80.0-100.0 fL Mean Corpuscular Hemoglobin 33.2 H 28.0-32.0 pg Mean Corpuscular Hemoglobin Concent 34.2 32.0-36.0 g/dL Red Cell Distribution Width 12.3 11.8-14.3 % Platelet Count 180 140-450 10^3/uL Mean Platelet Volume 8.2 6.9-10.8 fL Neutrophils (%) (Auto) 67.7 37.0-80.0 % Lymphocytes (%) (Auto) 22.5 10.0-50.0 % Monocytes (%) (Auto) 8.1 0.0-12.0 % Eosinophils (%) (Auto) 1.3 0.0-7.0 % Basophils (%) (Auto) 0.4 0.0-2.0 % Neutrophils # (Auto) 4.0 1.6-8.6 10 ^3/uL Lymphocytes # (Auto) 1.3 0.4-5.4 10 ^3/uL Monocytes # (Auto) 0.5 0-1.3 10 ^3/uL Eosinophils # (Auto) 0.1 0-0.8 10 ^3/uL Basophils # (Auto) 0 0-0.2 10 ^3/uL Nucleated Red Blood Cells 0.0 % Sodium Level 146 H 136-145 mmol/L Potassium Level 3.3 L 3.5-5.1 mmol/L Chloride Level 109 H 98-107 mmol/L Carbon Dioxide Level 29 20-31 mmol/L Anion Gap 8 5-15 Blood Urea Nitrogen 17 9-23 mg/dL Creatinine 0.58 0.550-1.02 mg/dL Glomerular Filtration Rate Calc 102 >90 mL/min BUN/Creatinine Ratio 29.3 H 10.0-20.0 Serum Glucose 94 74-106 mg/dL Calcium Level 9.4 8.7-10.4 mg/dL Total Bilirubin 0.6 0.2-1.0 mg/dL Aspartate Amino Transferase (AST) 15 13-40 U/L Alanine Aminotransferase (ALT) 20 7-40 U/L Alkaline Phosphatase 60 46-116 U/L Total Protein 5.6 L 5.7-8.2 g/dL Albumin 4.0 3.2-4.8 g/dL Troponin I High Sensitivity < 3 L </=34 ng/L Magnesium Level 1.7 1.6-2.6 mg/dL B-Type Natriuretic Peptide 39.02 0-100 pg/mL Thyroid Stimulating Hormone (TSH) 1.34 0.55-4.78 uIU/mL Test 10/03/24 13:56 10/03/24 00:00 Range/Units POC Glucose 105 70-106 mg/dl Urine Color Light-yellow Yellow Urine Clarity Clear Clear Urine pH 7.0 5.0-9.0 Urine Specific [place] > 1.035 H 1.001-1.035 Urine Protein Trace H Negative Urine Ketones Negative Negative Urine Blood Negative Negative /uL Urine Nitrite Negative Negative Urine Bilirubin Negative Negative Urine Urobilinogen Normal Negative mg/dL Urine Leukocyte Esterase Negative Negative /uL Urine RBC 1 0 - 4 /hpf Urine Microscopic WBC < 1 0-5 /HPF Urine Squamous Epithelial Cells Few <5 /hpf Urine Bacteria None seen None Seen /hpf Urine Glucose Normal Normal mg/dL Assessment Impression: Pulmonary nodule Hypokalemia Generalized weakness GERD Plan: CT showing 8 mm KAREEM pulmonary nodule. No history of smoking. Recommend repeat CT chest w/o contrast in 6-12 months for lung nodule surveillance given pt's low risk due to no history of smoking. CXR shows no acute opacities. Follow up Neurology recs On room air Supplemental oxygen PRN Monitor renal function. Monitor electrolytes. Supplement as necessary. Monitor potassium Monitor ins and outs. GI prophylaxis with Protonix due to h/o GERD. DVT prophylaxis. Prognosis: Guarded given patient's multiple co-morbidities. Rest of plan per hospitalist and other consultants. Thank you Dr Lynne Andujar for allowing me to participate in this patient's care. Further recommendations will depend on the patient's clinical course. Please do not hesitate to contact me if you have any questions or concerns. This medical document was created using an electronic medical record system with [employer] dictation system. Although these documentations are being carefully reviewed, there may still be some phonetic and typographical changes. The errors are purely typographical, due to imperfection on the software program, and do not reflect any compromise in the patient's medical care. Plan discussed with: Patient, Other (KAROLINA Dietz/HIMANSHU Jimenez/) KARI ONOFRE MD Oct 04, 2024 23:07
[2024-10-05] VITALS (7 sets, daily range): BP systolic 102–116; BP diastolic 49–60; PULSE 60–79; RESP 16–18; TEMP 98–99.2; O2SAT 94–98
[2024-10-05] MEDS: LEVOTHYROXINE SODIUM 50 MCG TAB PO SCH (05:44)
[2024-10-05] MEDS: PANTOPRAZOLE 40 MG TAB PO SCH (09:35)
--- NOTE | 2024-10-05 10:58 | DVH ---
Procedure: CT CHEST WITHOUT CONTRAST Reason for study/Clinical History: Eval lungs for pulmonary nodules Comparison Study: None available at time of dictation. Exam Date: 10/05/2024 08:57 AM TECHNIQUE: Multidetector CT of the chest was performed from the lung apices to the upper abdomen with out the use of intravenous contract. Axial, coronal and sagittal multiplanar reformats were performed . Radiation Dose Information: CT Dose: CTDI volume is 4.61 mGy. Dose-length product is 160.49 mGy*cm The dose indicators for CT are the volume Computed Tomography (CT) Dose Index (CTDIvol) and the Dose Length Product (DLP), and are measured in units of mGy and mGy-cm, respectively. These indicators are not patient dose, but values generated from the CT scanner acquisition factors. The report includes radiation exposure data for exposures received during this examination. FINDINGS: Lower neck: Normal thyroid. Lungs: No suspicious pulmonary nodule. Biapical scarring. Dependent atelectasis. Heart/Vascular Structures: Borderline cardiomegaly. Vascular calcifications of the aorta. Lymph Nodes: No adenopathy Pleura: No pleural effusion or significant pneumothorax. Musculoskeletal: No acute osseous abnormality. Soft tissues: Normal. Upper abdomen: Limited portions of the upper abdomen are unremarkable. IMPRESSION: No acute intrathoracic abnormality. Radiation optimization: All CT scans at this facility use at least one of these dose optimization jaleesa hniques: automated exposure control mA and/or kV adjustment per patient size (includes targeted exam s where dose is matched to clinical indication) or iterative reconstruction.
--- NOTE | 2024-10-05 12:40 | DVHPN2 ---
Reviewed: Care Plan, H&P, Labs, Medications, Previous Orders, Radiology Changes from previous H/P or p: No Changes Objective Vitals Vital Signs Date Time Temp Pulse Resp B/P (MAP) Pulse Ox O2 Delivery O2 Flow Rate FiO2 10/05/24 10:32 60 16 102/50 10/05/24 08:49 98.0 98 98.0 10/05/24 08:00 Room Air* 0 21 Intake/Output Intake and Output 10/05/24 07:00 Intake Total 1768 ml Output Total 0 ml Balance 1768 ml Intake Oral 1168 ml IV Total 600 ml Output Stool Total 0 ml # Voids 8 Medications Current Medications Medications Dose Ordered Sig/Daljit Route Start Time Stop Time Status Last Admin Dose Admin Ketorolac Tromethamine 15 mg Q6HPRN PRN IV 10/03/24 19:15 10/08/24 19:14 10/04/24 06:31 15 MG Sodium Chloride 1,000 ml @ 75 mls/hr [id number] IV 10/03/24 19:15 10/04/24 02:30 75 MLS/HR Acetaminophen 650 mg Q6HP PRN PO 10/03/24 19:15 10/04/24 11:23 650 MG Pantoprazole Sodium 40 mg DAILY PO 10/05/24 10:00 10/05/24 09:35 40 MG Levothyroxine Sodium 50 mcg QAM@0600 PO 10/05/24 06:00 10/05/24 05:44 50 MCG Morphine Sulfate 2 mg Q6HPRN PRN IV 10/04/24 22:15 10/05/24 10:02 2 MG Ondansetron HCl 4 mg Q6HPRN PRN IV 10/04/24 22:15 10/04/24 22:30 4 MG Laboratory Results Laboratory Tests 10/04/24 06:18 Urinalysis Test 10/03/24 00:00 Urine Color Light-yellow (Yellow) Urine Clarity Clear (Clear) Urine pH 7.0 (5.0-9.0) Urine Specific [place] > 1.035 (1.001-1.035) Urine Protein Trace (Negative) H Urine Ketones Negative (Negative) Urine Blood Negative /uL (Negative) Urine Nitrite Negative (Negative) Urine Bilirubin Negative (Negative) Urine Urobilinogen Normal mg/dL (Negative) Urine Leukocyte Esterase Negative /uL (Negative) Urine RBC 1 /hpf (0 - 4) Urine Microscopic WBC < 1 /HPF (0-5) Urine Squamous Epithelial Cells Few /hpf (<5) Urine Bacteria None seen /hpf (None Seen) Urine Glucose Normal mg/dL (Normal) Labs and/or images reviewed: Labs reviewed by me, Image(s) reviewed by me Assessment/Plan Assessment/Plan Subacute left-sided headache with left-sided weakness rule out TIA CVA: CT head and neck negative consult for Neurology Dr. Tidwell, pending, Toradol for the pain 8 mm left upper lobe nodule: Consult for Dr. Kim advised repeat CT in one year Hypothyroidism GERD ESR rule out temporal arteritis, ESR normal All labs are normal CT C-spine negative Plan discussed with: Patient Date of Service: Oct 05, 2024 Billing Provider: ROBERT DAWSON MD Common Visit Codes: [id number] INP/OBS CARE(HIGH) ROBERT DAWSON MD Oct 05, 2024 12:40
--- NOTE | 2024-10-05 22:35 | DVHPN2 ---
Progress Note - Dictate Date Seen: Oct 05, 2024 Medical Necessity Reason Pt with a Central, PICC or Fol: No Subjective Patient seen and examined at bedside. Breathing comfortably on room air. Overnight events reviewed. vital signs Vital Sign Date Time Temp Pulse Resp B/P (MAP) Pulse Ox O2 Delivery O2 Flow Rate FiO2 10/05/24 21:00 98.2 63 17 109/52 (71) 94 98.2 10/05/24 08:00 Room Air* 0 21 Total Intake and Output 10/04/24 10/04/24 10/05/24 15:00 23:00 07:00 Intake Total 400 ml 1250 ml 118 ml Output Total 0 ml Balance 400 ml 1250 ml 118 ml medications Current Medications Medications Dose Ordered Sig/Daljit Route Start Time Stop Time Status Last Admin Dose Admin Ketorolac Tromethamine 15 mg Q6HPRN PRN IV 10/03/24 19:15 10/08/24 19:14 10/04/24 06:31 15 MG Sodium Chloride 1,000 ml @ 75 mls/hr [id number] IV 10/03/24 19:15 10/05/24 17:28 75 MLS/HR Acetaminophen 650 mg Q6HP PRN PO 10/03/24 19:15 10/04/24 11:23 650 MG Pantoprazole Sodium 40 mg DAILY PO 10/05/24 10:00 10/05/24 09:35 40 MG Levothyroxine Sodium 50 mcg QAM@0600 PO 10/05/24 06:00 10/05/24 05:44 50 MCG Morphine Sulfate 2 mg Q6HPRN PRN IV 10/04/24 22:15 10/05/24 20:04 2 MG Ondansetron HCl 4 mg Q6HPRN PRN IV 10/04/24 22:15 10/05/24 20:08 4 MG objective Gen.: Patient lying in bed in no apparent distress. Breathing on room air. Head: Normocephalic, atraumatic. Eyes: EOMI/PERRLA. Ears: Normal hearing. Normal anatomy. Neck/trachea: Trachea midline, supple. Nose: Normal external anatomy. Mouth: Moist mucous membranes. Chest: Decreased air entry bilaterally. No wheezing or rhonchi. Cardiovascular: Positive S1, positive S2. Regular rate and rhythm. Abdomen: Positive bowel sounds in all 4 quadrants. Soft, non-tender, non- distended. : Deferred. Rectal: Deferred. Skin: Warm, dry. Intact. Extremities: 2+ radial pulses bilaterally. No lower extremity edema. Neuro: Awake, alert, oriented x3. No gross motor or sensory deficits. Cranial nerves II through XII intact. Gait not assessed. laboratory and microbiology Laboratory Tests 10/04/24 06:18 Test 10/04/24 06:18 Range/Units Serum Glucose 94 74-106 mg/dL Assessment/Plan Impression: Pulmonary nodule Hypokalemia Generalized weakness GERD Events: Remains on room air Supplemental oxygen PRN CT chest did not reveal any pulmonary nodules - likely reactive. No further followup required. Updated patient at bedside. GI prophylaxis w/ Protonix due to hx of GERD DVT prophylaxis. Labs and imaging reviewed. Rest of plan as noted below. Plan: On room air Supplemental oxygen PRN Monitor renal function. Monitor electrolytes. Supplement as necessary. Monitor ins and outs. Neurology recs appreciated GI prophylaxis with Protonix due to h/o GERD. DVT prophylaxis. Prognosis: Guarded given patient's multiple co-morbidities. Rest of plan per hospitalist and other consultants. Thank you Dr Lynne Andujar for allowing me to participate in this patient's care. Further recommendations will depend on the patient's clinical course. Please do not hesitate to contact me if you have any questions or concerns. This medical document was created using an electronic medical record system with [employer] dictation system. Although these documentations are being carefully reviewed, there may still be some phonetic and typographical changes. The errors are purely typographical, due to imperfection on the software program, and do not reflect any compromise in the patient's medical care. Plan discussed with: Patient, Other (RN) KARI ONOFRE MD Oct 05, 2024 22:35
--- NOTE | 2024-10-05 22:39 | DVHINCON2 ---
Date of service: Oct 05, [address] Andujar Reason for Consultation Headache History of Present Illness Ms. Mendoza is a 63 years old right-handed female with a history of hypothyroidism, GERD, she came to the [facility] on 10/03/2024 with a chief company of left-sided headache. At this time, she was alert and fully oriented, she provided the following history Over last six weeks of time, she was constant daily pressure pain in the left occipital region, spread to left head, left ear, and then to the left neck. She wakes up with no pain but the pain gradually beauty up, and picked at 10/10 at work, sometimes the pain spread to the left upper extremity. The pain still persist in the hospital as before. There was no chills, fever, no associated vision change, focal weakness or numbness. She was never had similar problems previously. Urinalysis, 10/03/2024: WBC: One, urine leukocyte esterase: Negative CBC, 10/04/2024: Unremarkable ESR, 10/04/2024: 5 CMP, 10/03/2024: Unremarkable TSH, 10/03/2019 5:1.34 CT head, 10/03/2024: No intracranial hemorrhage CTA head, neck, 10/03/2024: No evidence of hemodynamically significant cervical stenosis Past Medical History Hypothyroidism, GERD Past Surgical History , left TMJ surgery, right wrist ganglion resection Family History: Cardiovascular disease G8 MOTHER, Family History Hypertension, heart disease Social History She has no history of smoking, alcohol or recreational substance abuse Allergies: Coded Allergies: NO KNOWN ALLERGIES (Unverified , 10/03/24) Home Meds Reported Medications Levothyroxine Sodium (SYNTHROID TABLET) 50 Mcg Tb, 1 TAB PO DAILY, #30 TAB 5 Refills 10/03/24 Estradiol Vaginal (Estradiol) 0.1 Mg/Gm Cre 10/03/24 Omeprazole (Omeprazole Dr) 20 Mg Cap, 1 DAILY 10/03/24 Ibuprofen Micronized (Ibuprofen) 800 Mg Tab, 1 10/03/24 Amoxicillin Trihydrate (Amoxicillin) 500 Mg Cap, 1 10/03/24 Current Medications Current Medications Medications (Trade) Dose Ordered Sig/Daljit Route PRN Reason Start Time Stop Time Status Last Admin Pantoprazole Sodium (Protonix Tablet) 40 mg DAILY PO 10/05/24 10:00 10/05/24 09:35 Levothyroxine Sodium (Synthroid Tablet) 50 mcg QAM@0600 PO 10/05/24 06:00 10/05/24 05:44 Review of Systems As above, the other systems are negative Vital Signs Vital Signs Date Time Temp Pulse Resp B/P (MAP) Pulse Ox O2 Delivery O2 Flow Rate FiO2 10/05/24 21:00 98.2 63 17 109/52 (71) 94 98.2 10/05/24 08:00 Room Air* 0 21 Physical Exam GENERAL EXAM: General: the patient is well developed and nourished. No acute distress. HEENT: Normocephalic, neck is supple, no carotid bruits. No mass. Some tenderness to palpation in the back of the left ear, no erythema, tenderness to palpation, swelling, or permanent vasculatures in the scalp. She has tenderness to palpation in the left TMJ region RESPIRATORY: Normal respiratory effort with symmetrical lung expansion. Lungs clear to auscultation. CARDIOVASCULAR: Regular rate and rhythm with no murmurs. S1, S2. ABDOMEN: Soft, nontender, normal bowel sound MUSCULOSKELETAL EXAM: Tenderness to palpation in the low back NEUROLOGICAL: MENTAL STATUS: Awake and alert. Oriented to person, place, time and general circumstances. Able to give personal history. SPEECH, LANGUAGE, HIGHER CORTICAL FUNCTION: no aphasia or dysathria. CRANIAL NERVES: #2: Intact visual myles to confrontation. The optic discs were sharp #3,4,6: Pupils are equal, round and reactive. EOMs full and conjugate. No nys tagmus. #5: Facial sensation intact in all three divisions bilaterally. Mandibular strength intact. #7: Facial muscles symmetrical and strength intact. #8: Hearing grossly normal to voice. #9,10: Uvula and soft palate rise in the midline. Swallow and voice are normal. #11: Trapezius and sternomastoid strength intact bilaterally. #12: Tongue midline. No fasciculations or atrophy. SENSATION: Sensation to touch and pinprick is normal. MOTOR: Normal tone in the upper and lower extremity. Normal muscle bulk. No fasciculations. No abnormal movements or posturing. Muscle strength of the major groups in the upper extremities is 5/5. Muscle strength of the major groups in the lower extremities is 5/5. REFLEXES: Deep tendon reflexes are symmetrical. No pathological reflexes. CEREBELLAR/COORDINATION: Finger to nose and heel to [place] are normal bilaterally. GAIT/STATION: deferred. Labs/Diagnostic Data Labs Test 10/04/24 11:38 10/04/24 06:18 10/03/24 15:23 10/03/24 14:24 Range/Units Erythrocyte Sedimentation Rate 5 0-20 mm/hr White Blood Count 6.0 4.4-10.8 10^3/uL Red Blood Count 3.85 L 4.0-5.20 10^6/uL Hemoglobin 12.8 12.2-16.2 g/dL Hematocrit 37.4 36.0-46.0 % Mean Corpuscular Volume 97.1 80.0-100.0 fL Mean Corpuscular Hemoglobin 33.2 H 28.0-32.0 pg Mean Corpuscular Hemoglobin Concent 34.2 32.0-36.0 g/dL Red Cell Distribution Width 12.3 11.8-14.3 % Platelet Count 180 140-450 10^3/uL Mean Platelet Volume 8.2 6.9-10.8 fL Neutrophils (%) (Auto) 67.7 37.0-80.0 % Lymphocytes (%) (Auto) 22.5 10.0-50.0 % Monocytes (%) (Auto) 8.1 0.0-12.0 % Eosinophils (%) (Auto) 1.3 0.0-7.0 % Basophils (%) (Auto) 0.4 0.0-2.0 % Neutrophils # (Auto) 4.0 1.6-8.6 10 ^3/uL Lymphocytes # (Auto) 1.3 0.4-5.4 10 ^3/uL Monocytes # (Auto) 0.5 0-1.3 10 ^3/uL Eosinophils # (Auto) 0.1 0-0.8 10 ^3/uL Basophils # (Auto) 0 0-0.2 10 ^3/uL Nucleated Red Blood Cells 0.0 % Sodium Level 146 H 136-145 mmol/L Potassium Level 3.3 L 3.5-5.1 mmol/L Chloride Level 109 H 98-107 mmol/L Carbon Dioxide Level 29 20-31 mmol/L Anion Gap 8 5-15 Blood Urea Nitrogen 17 9-23 mg/dL Creatinine 0.58 0.550-1.02 mg/dL Glomerular Filtration Rate Calc 102 >90 mL/min BUN/Creatinine Ratio 29.3 H 10.0-20.0 Serum Glucose 94 74-106 mg/dL Calcium Level 9.4 8.7-10.4 mg/dL Total Bilirubin 0.6 0.2-1.0 mg/dL Aspartate Amino Transferase (AST) 15 13-40 U/L Alanine Aminotransferase (ALT) 20 7-40 U/L Alkaline Phosphatase 60 46-116 U/L Total Protein 5.6 L 5.7-8.2 g/dL Albumin 4.0 3.2-4.8 g/dL Troponin I High Sensitivity < 3 L </=34 ng/L Magnesium Level 1.7 1.6-2.6 mg/dL B-Type Natriuretic Peptide 39.02 0-100 pg/mL Thyroid Stimulating Hormone (TSH) 1.34 0.55-4.78 uIU/mL Test 10/03/24 13:56 10/03/24 00:00 Range/Units POC Glucose 105 70-106 mg/dl Urine Color Light-yellow Yellow Urine Clarity Clear Clear Urine pH 7.0 5.0-9.0 Urine Specific [place] > 1.035 H 1.001-1.035 Urine Protein Trace H Negative Urine Ketones Negative Negative Urine Blood Negative Negative /uL Urine Nitrite Negative Negative Urine Bilirubin Negative Negative Urine Urobilinogen Normal Negative mg/dL Urine Leukocyte Esterase Negative Negative /uL Urine RBC 1 0 - 4 /hpf Urine Microscopic WBC < 1 0-5 /HPF Urine Squamous Epithelial Cells Few <5 /hpf Urine Bacteria None seen None Seen /hpf Urine Glucose Normal Normal mg/dL Assessment Left-sided headache, etiology unclear Temporal arteritis, less likely with low ESR and unremarkable scalp physical examination Plan/Recommendation Monitoring Supportive treatment Telemetry MR head CRP A trial of Elavil 20 mg daily More recommendation per clinical course Prognosis: Poor This medical document was created using an electronic medical record system with [employer] dictation system. Although this document has been carefully reviewed, there may still be some phonetic and typographical errors. These areas are purely typographical due to imperfections of the software programs, and do not reflect any compromise in the patient's medical care. Plan discussed with: Patient, Other AMENA RAZA MD Oct 05, 2024 22:39
[2024-10-05] MEDS ORDERED: LORazepam 2MG/ML-1ML VIAL IV PRN (23:30)
[2024-10-06] VITALS (7 sets, daily range): BP systolic 98–115; BP diastolic 48–58; PULSE 54–81; RESP 16–18; TEMP 36.9; O2SAT 94–97
--- NOTE | 2024-10-06 09:05 | DVH ---
EXAMINATION: MRI BRAIN HEAD WO CONTRAST INDICATION: new onset daily headache COMPARISON: CT scan of the head performed on 09/14/2024 TECHNIQUE: Multiplanar, multisequence magnetic resonance imaging of the brain was performed without the use of i ntravenous contrast. FINDINGS: No evidence of acute infarct. No intracranial hemorrhage. No mass effect. The ventricles and sulci are normal in size for age. Clear basal cisterns. Flow voids in the major intracranial vessels are maintained. No abnormality of the orbits. Paranasal sinuses and mastoid air cells are clear. No abnormality of the visualized osseous structures and extracranial soft tissues. IMPRESSION: 1. No acute infarct, intracranial hemorrhage, mass effect, or hydrocephalus.
[2024-10-06] MEDS ORDERED: AMIT25TA19 PO (12:38)
[2024-10-06] MEDS ORDERED: PERCOT PO (12:38)
--- NOTE | 2024-10-06 12:41 | DVHPN2 ---
Reviewed: Care Plan, H&P, Labs, Medications, Previous Orders, Radiology Changes from previous H/P or p: No Changes Objective Vitals Vital Signs Date Time Temp Pulse Resp B/P (MAP) Pulse Ox O2 Delivery O2 Flow Rate FiO2 10/06/24 09:46 84 18 117/64 10/06/24 09:00 97.8 95 97.8 10/06/24 08:00 Room Air* 0 21 Intake/Output Intake and Output 10/06/24 07:00 Intake Total 1168 ml Balance 1168 ml Intake Oral 1018 ml IV Total 150 ml # Voids 13 Medications Current Medications Medications Dose Ordered Sig/Daljit Route Start Time Stop Time Status Last Admin Dose Admin Ketorolac Tromethamine 15 mg Q6HPRN PRN IV 10/03/24 19:15 10/08/24 19:14 10/04/24 06:31 15 MG Sodium Chloride 1,000 ml @ 75 mls/hr [id number] IV 10/03/24 19:15 10/05/24 17:28 75 MLS/HR Acetaminophen 650 mg Q6HP PRN PO 10/03/24 19:15 10/04/24 11:23 650 MG Pantoprazole Sodium 40 mg DAILY PO 10/05/24 10:00 10/06/24 09:44 40 MG Levothyroxine Sodium 50 mcg QAM@0600 PO 10/05/24 06:00 10/06/24 05:38 50 MCG Morphine Sulfate 2 mg Q6HPRN PRN IV 10/04/24 22:15 10/06/24 09:46 2 MG Ondansetron HCl 4 mg Q6HPRN PRN IV 10/04/24 22:15 10/05/24 20:08 4 MG Lorazepam 1 mg ONCE PRN IV 10/05/24 23:30 Amitriptyline HCl 25 mg HS PO 10/06/24 23:30 Laboratory Results Laboratory Tests 10/04/24 06:18 Urinalysis Test 10/03/24 00:00 Urine Color Light-yellow (Yellow) Urine Clarity Clear (Clear) Urine pH 7.0 (5.0-9.0) Urine Specific [place] > 1.035 (1.001-1.035) Urine Protein Trace (Negative) H Urine Ketones Negative (Negative) Urine Blood Negative /uL (Negative) Urine Nitrite Negative (Negative) Urine Bilirubin Negative (Negative) Urine Urobilinogen Normal mg/dL (Negative) Urine Leukocyte Esterase Negative /uL (Negative) Urine RBC 1 /hpf (0 - 4) Urine Microscopic WBC < 1 /HPF (0-5) Urine Squamous Epithelial Cells Few /hpf (<5) Urine Bacteria None seen /hpf (None Seen) Urine Glucose Normal mg/dL (Normal) Labs and/or images reviewed: Labs reviewed by me, Image(s) reviewed by me Assessment/Plan Assessment/Plan Subacute left-sided headache with left-sided weakness rule out TIA CVA: CT head and neck negative consult for Neurology Dr. Tidwell, appreciated, Toradol for the pain, recommended Elavil 25 mg p.o. HS 8 mm left upper lobe nodule: Consult for Dr. Kim advised repeat CT in one year Hypothyroidism GERD MRI Brain negative Normal ESR ruled out temporal arteritis All labs are normal CT C-spine negative Plan discussed with: Patient Date of Service: Oct 06, 2024 Billing Provider: ROBERT DAWSON MD Common Visit Codes: [id number] INP/OBS CARE(HIGH) ROBERT DAWSON MD Oct 06, 2024 12:41
--- NOTE | 2024-10-06 12:45 | DVHDS2 ---
Discharge Summary Date of Admission Oct 03, 2024 at 19:12 Date of Discharge: Oct 06, 2024 Admitting Diagnosis Left-sided headache Wounds: None Labs/Diagnostic Data: Laboratory Results Test 10/06/24 00:21 10/04/24 11:38 10/04/24 06:18 10/03/24 15:23 C-Reactive Protein High Sensitivity 0.08 mg/dL (<1.0) Erythrocyte Sedimentation Rate 5 mm/hr (0-20) White Blood Count 6.0 10^3/uL (4.4-10.8) Red Blood Count 3.85 10^6/uL (4.0-5.20) Hemoglobin 12.8 g/dL (12.2-16.2) Hematocrit 37.4 % (36.0-46.0) Mean Corpuscular Volume 97.1 fL (80.0-100.0) Mean Corpuscular Hemoglobin 33.2 pg (28.0-32.0) Mean Corpuscular Hemoglobin Concent 34.2 g/dL (32.0-36.0) Red Cell Distribution Width 12.3 % (11.8-14.3) Platelet Count 180 10^3/uL (140-450) Mean Platelet Volume 8.2 fL (6.9-10.8) Neutrophils (%) (Auto) 67.7 % (37.0-80.0) Lymphocytes (%) (Auto) 22.5 % (10.0-50.0) Monocytes (%) (Auto) 8.1 % (0.0-12.0) Eosinophils (%) (Auto) 1.3 % (0.0-7.0) Basophils (%) (Auto) 0.4 % (0.0-2.0) Neutrophils # (Auto) 4.0 10 ^3/uL (1.6-8.6) Lymphocytes # (Auto) 1.3 10 ^3/uL (0.4-5.4) Monocytes # (Auto) 0.5 10 ^3/uL (0-1.3) Eosinophils # (Auto) 0.1 10 ^3/uL (0-0.8) Basophils # (Auto) 0 10 ^3/uL (0-0.2) Nucleated Red Blood Cells 0.0 % Sodium Level 146 mmol/L (136-145) Potassium Level 3.3 mmol/L (3.5-5.1) Chloride Level 109 mmol/L (98-107) Carbon Dioxide Level 29 mmol/L (20-31) Anion Gap 8 (5-15) Blood Urea Nitrogen 17 mg/dL (9-23) Creatinine 0.58 mg/dL (0.550-1.02) Glomerular Filtration Rate Calc 102 mL/min (>90) BUN/Creatinine Ratio 29.3 (10.0-20.0) Serum Glucose 94 mg/dL (74-106) Calcium Level 9.4 mg/dL (8.7-10.4) Total Bilirubin 0.6 mg/dL (0.2-1.0) Aspartate Amino Transferase (AST) 15 U/L (13-40) Alanine Aminotransferase (ALT) 20 U/L (7-40) Alkaline Phosphatase 60 U/L (46-116) Total Protein 5.6 g/dL (5.7-8.2) Albumin 4.0 g/dL (3.2-4.8) Troponin I High Sensitivity < 3 ng/L (</=34) Test 10/03/24 14:24 10/03/24 13:56 10/03/24 00:00 Magnesium Level 1.7 mg/dL (1.6-2.6) B-Type Natriuretic Peptide 39.02 pg/mL (0-100) Thyroid Stimulating Hormone (TSH) 1.34 uIU/mL (0.55-4.78) POC Glucose 105 mg/dl (70-106) Urine Color Light-yellow (Yellow) Urine Clarity Clear (Clear) Urine pH 7.0 (5.0-9.0) Urine Specific [place] > 1.035 (1.001-1.035) Urine Protein Trace (Negative) Urine Ketones Negative (Negative) Urine Blood Negative /uL (Negative) Urine Nitrite Negative (Negative) Urine Bilirubin Negative (Negative) Urine Urobilinogen Normal mg/dL (Negative) Urine Leukocyte Esterase Negative /uL (Negative) Urine RBC 1 /hpf (0 - 4) Urine Microscopic WBC < 1 /HPF (0-5) Urine Squamous Epithelial Cells Few /hpf (<5) Urine Bacteria None seen /hpf (None Seen) Urine Glucose Normal mg/dL (Normal) Other Laboratory Tests 10/04/24 06:18 Brief Hx & Hospital Course: Treated out female with no previous history accept hypothyroidism came in for left-sided headache for a few weeks and also some weakness. Patient was admitted for rule out CVA TIA. CT head was negative CT head and neck was also negative neurology consult by Dr. Tidwell MRI brain negative ESR normal C-reactive protein normal. All labs were normal temporal arteritis ruled out by normal ESR. Patient being discharged home on Elavil as recommended with the neurologist and also on Percocet p.r.n. for the headache she will follow up with the primary Dr and neurologist. Found to have 8 mm nodule in the left upper lobe. Seen by Dr. Kim advised repeat CT scan in one year Consults/Reason for consult Neurology Dr. Tidwell Operations or Procedures CT head CT head and neck MRI brain Condition at Discharge: Fair Final Diagnosis/Problems List Subacute left-sided headache with left-sided weakness rule out TIA CVA: CT head and neck negative consult for Neurology Dr. Tidwell, appreciated, Toradol for the pain, recommended Elavil 25 mg p.o. HS 8 mm left upper lobe nodule: Consult for Dr. Kim advised repeat CT in one year Hypothyroidism GERD MRI Brain negative Normal ESR ruled out temporal arteritis All labs are normal CT C-spine negative Discharge Disposition: Home Discharge Instruct/Medications Diet: Regular Activity: No Restrictions, As Tolerated Follow Up/Referral: Follow up with the primary Dr Follow up with neurologist Dr. Tidwell in two weeks Medications: Elavil Percocet Transmitted to the pharmacy 35 (Time taken for discharge summary 35 minutes) Discharge Statement: "Patient was advised to return to the ER or call 911 if any headaches, dizziness, shortness of breath, chest pain, abdominal pain, bleeding, fevers, or worsening of medical condition. Patient was counseled about treatment plan, medications, possible side effects, patientverbalized understanding. All questions were answered to the best of my ability. This discharge took greater then 30 minutes in planning, reviewing documentation, counseling the patient, and discussing with other team members." ASSESSMENT ASSESSMENT Hospital Course Improved Assessment Subacute left-sided headache with left-sided weakness rule out TIA CVA: CT head and neck negative consult for Neurology Dr. Tidwell, appreciated, Toradol for the pain, recommended Elavil 25 mg p.o. HS 8 mm left upper lobe nodule: Consult for Dr. Kim advised repeat CT in one year Hypothyroidism GERD MRI Brain negative Normal ESR ruled out temporal arteritis All labs are normal CT C-spine negative Date of Service: Oct 06, 2024 Billing Provider: ROBERT DAWSON MD Common Visit Codes: [id number] DISCH DAY >30min ROBERT DAWSON MD Oct 06, 2024 12:45
[2024-10-06] MEDS ORDERED: AMITRIPTYLINE HCL 25 MG TAB PO SCH (23:30)
== END 2024-10-06 17:00 | disposition home or self-care (01) | DRG 69 ==
LOC: ER 13:40 → OVERFLOW 19:12 → WEST WING 21:40
PROVIDERS: ADMIT Family Medicine; ATTEND Family Medicine
DX: G45.9 Transient cerebral ischemic attack, unspecified (principal); E87.6 Hypokalemia; K21.9 Gastro-esophageal reflux disease without esophagitis; E03.9 Hypothyroidism, unspecified; R91.1 Solitary pulmonary nodule; Z98.891 History of uterine scar from previous surgery; Z82.49 Family history of ischemic heart disease and other diseases of the circulatory system; Z79.899 Other long term (current) drug therapy
CPT/HCPCS: 36415; 70496; 70498; 70551; 71045; 71250; 72125; 80053; 81001; 82962; 83735; 83880; 84443; 84484; 85025; 85652; 86141; 93005; 96374; G0378; J1885; J2405

== ENCOUNTER → 2025-02-18 | Outpatient (CLI) | payer BC ==
[~2025-02-18] MED LIST: AMIT25TA19 PO; AMOX500C2; ESTR0.1C5; IBUP-1455; LEVO-848 PO; OMEP1CAP70; PERCOT PO
== END | disposition home or self-care (01) ==
LOC: LAB 09:43
PROVIDERS: ATTEND Registered Nurse
DX: R30.0 Dysuria (principal)
CPT/HCPCS: 87086

== ENCOUNTER 2025-04-28 10:05 | Outpatient (CLI) | payer BC ==
[2025-04-28 10:45] LABS: Urine Protein, UAD Negative (Negative)
== END 2025-04-28 17:00 | disposition home or self-care (01) ==
LOC: LAB 10:05
PROVIDERS: ATTEND Nurse Practitioner
DX: R30.0 Dysuria (principal)
CPT/HCPCS: 81001; 87086

== ENCOUNTER → 2025-07-30 | Outpatient (CLI) | payer BC | END | disposition home or self-care (01) | LOC: LAB 12:46 | PROVIDERS: ATTEND Nurse Practitioner Family | DX: N39.0 Urinary tract infection, site not specified (principal) | CPT/HCPCS: 87086 ==

== ENCOUNTER 2025-08-01 16:35 | Emergency (ER) | payer BC ==
[~2025-08-01] VITALS: Ht 172.7 cm; Wt 63.2 kg
--- NOTE | 2025-08-01 18:52 | DVH ---
EXAM: XY L ANKLE 3 VIEW CLINICAL INDICATION: left ankle pain TECHNIQUE: XY L ANKLE 3 VIEW COMPARISON: None FINDINGS/IMPRESSION: There is an avulsion fracture off the inferior fibula. Soft tissue swelling is noted. There is no evidence of dislocation. The visualized joint space is well maintained. The alignment is anatomical. There is no radiopaque foreign body.
--- NOTE | 2025-08-01 18:53 | DVH ---
EXAM: XY L FOOT 3 VIEW XRAY CLINICAL INDICATION: left foot pain TECHNIQUE: XY L FOOT 3 VIEW XRAY COMPARISON: None FINDINGS/IMPRESSION: There is an acute fracture through the base of the 5th metatarsal. This is minimally displaced. This does extend to the joint space. The visualized joint space is well maintained. The alignment is anatomical. There is no radiopaque foreign body.
[2025-08-01] MEDS ORDERED: IBUP-1456 PO (18:55)
[2025-08-01] MEDS ORDERED: ACE3T PO (18:55)
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
[2025-08-01] MEDS: ONDANSETRON ODT 4 MG TAB PO ONE (19:03)
[2025-08-01] MEDS: HYDROcodone-ACET 5/325MG TAB PO ONE (19:03)
[2025-08-01 19:25] VITALS: BP 137/66; PULSE 81; RESP 16; TEMP 97.6; O2SAT 95
== END 2025-08-01 19:41 | disposition home or self-care (01) ==
LOC: ER 16:35
DX: S92.352A Displaced fracture of fifth metatarsal bone, left foot, initial encounter for closed fracture (principal); S82.892A Other fracture of left lower leg, initial encounter for closed fracture; K21.9 Gastro-esophageal reflux disease without esophagitis; Z79.899 Other long term (current) drug therapy; Z79.890 Hormone replacement therapy; Z98.890 Other specified postprocedural states; W19.XXXA Unspecified fall, initial encounter; Y93.89 Activity, other specified; Y92.89 Other specified places as the place of occurrence of the external cause; Y99.8 Other external cause status
CPT/HCPCS: 29515; 73610; 73630; 99284; Q0162